=== PATIENT | female | born 1985 | race Caucasian/White ===

== ENCOUNTER 2016-05-26 17:57 | Emergency (ER) | payer OTHER ==
--- NOTE | 2016-05-26 19:21 | DIAGNOSTIC IMAGING REPORT ---
PROCEDURE: XR KNEE 4 VIEWS - RIGHT INDICATION: TRAUMA/INJURY, initial encounter TECHNIQUE: Four views. COMPARISON: None. FINDINGS: Osseous structures, soft tissues and joint spaces are normal. IMPRESSION: 1. Normal left knee.
--- NOTE | 2016-05-26 19:38 | ED NURSING NOTES ---
Clinical Report - Nurs[facility] [address] [place] [address] 05/26/2016 17:57 Patient: ROSARIO HERNANDEZ TRIAGE Acuity: LEVEL 3. Chief Complaint: INJURY TO LEFT KNEE. Alert. No acute distress. SEPSIS SCREEN: Sepsis Screen. Negative (no infection suspected/documented). --18:27 Tammie Rivero R.N. 18:23 05/26/16. BP: 127/91. HR: 110. RR: 16. O2 saturation: 100%. Temp: 98.8 F (oral). Pain level now: 11/12. --18:27 Tammie Rivero R.N. Weight: 113.3 kg stated. Height/Length: 69 inches Per Patient. BMI: 36.9. --18:26 Tammie Rivero R.N. Medications Naproxen Oral. --18:25 Tammie Rivero R.N. Cyclobenzaprine HCl Oral 10 mg, as needed. --18:25 Tammie Rivero R.N. Medication/allergy information source: the patient. --18:27 Tammie Rivero R.N. Allergies No Known Drug Allergy. --18:25 Tammie Rivero R.N. History Arrived by private vehicle. Historian: patient. Accompanied by spouse. This occurred just prior to arrival. ( Pt reports after several standing and squatting episodes while bathing her horse, she felt her left knee "grind and then pop."). 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 SOCIAL HX: Never smoker. No alcohol use or drug use. FALL RISK ASSESSMENT: Fall risk assessment completed. No fall risk identified. NUTRITIONAL RISK ASSESSMENT: The nutritional risk assessment revealed no deficiencies. FUNCTIONAL ASSESSMENT: Functional assessment: no impairments noted. LEARNING NEEDS ASSESSMENT: The learning needs assessment revealed no barriers. SKIN INTEGRITY ASSESSMENT: Skin integrity risk assessment completed. No skin integrity risk identified. --18:27 Tammie Rivero R.N. PROBLEMS: Knee Injury. --18:25 Tammie Rivero R.N. ADDITIONAL SURGERIES: . --18:26 Tammie Rivero R.N. Assessment GENERAL / NEURO / PSYCH: Alert. Oriented X 4. Appears in no acute distress. Priscilal Coma Scale: 15- eyes open spontaneously (4); best verbal response- oriented x 4 (5); best motor response- obeys commands (6). Patient appears calm and cooperative. RESPIRATORY: Respirations not labored. CVS: Capillary refill less than 2 seconds. GI / : Abdomen soft and nontender. SKIN: Mucous membranes are pink. Skin is warm and dry. --18:27 Tammie Rivero R.N. Interventions ID band on patient. To treatment room. --18: Tammie Rivero R.N. PHYSICAL ASSESSMENT To room via wheelchair. GENERAL / NEURO / PSYCH: Oriented X 4. Alert. Appears in no acute distress. EXTREMITIES: Capillary refill is less than 2 seconds in the extremities. Extremity pulses are within normal limits. She was unable to bear weight. Neuro-vascular status intact to the extremity. SKIN: Skin intact. Skin is warm and dry. --18:27 Tammie Rivero R.N. NURSING PROGRESS NOTES 18:05/26/16. Patient gowned. Two patient identifiers checked. Call light placed in reach. Side rails up x 1. Patient ready for evaluation- chart flagged. ED physician at the patient's bedside. --18:28 Tammie Rivero R.N. 19:05/26/2016 Dilaudid (HYDROmorphone HCl PF) IM 1 mg given. Given in the right anterior lateral thigh. Allergies verified, confirmed 5 rights and sedative warning given to the patient. --19: Tammie Rivero R.N. 19:05/26/2016 Phenergan (Promethazine HCl) IM 25 mg given. Given in the right anterior lateral thigh. Allergies verified, confirmed 5 rights and sedative warning given to the patient. --19: Tammie Rivero R.N. Immobilizer applied to right knee; distal pulses intact, sensation intact and motor function within normal limits. Patient fit with new crutches (medium). Crutch training performed by tech; the patient demonstrated proper use. --19:52 Dominic Oden, ER Municipal [employer] Trader. DISPOSITION / DISCHARGE Departure time: 1999May 26 2016. Condition at departure: improved and stable. No learning barriers present. Discharge instructions provided and reviewed with the patient. Reviewed medication(s) side effects, precautions and dosing information. Prescription(s) given to the patient. Patient verbalized understanding. Written instructions provided in Togolese. The patient was discharged by the physician. She was discharged home and accompanied by spouse. She left the Emergency Department in a wheelchair on crutches and via private vehicle. Spouse driving. --22:37 Tammie Rivero R.N. Locked/Released at 05/26/2016 22:38 by Tammie Rivero R.N.
--- NOTE | 2016-05-26 19:38 | ED NURSING NOTES ---
Clinical Report - Nurses [facility] [address] [place] [address] 05/26/2016 17:57 Patient: ROSARIO HERNANDEZ TRIAGE Acuity: LEVEL 3. Chief Complaint: INJURY TO LEFT KNEE. Alert. No acute distress. SEPSIS SCREEN: Sepsis Screen. Negative (no infection suspected/documented). --18:27 Tammie Rivero R.N. 18:23 05/26/16. BP: 127/91. HR: 110. RR: 16. O2 saturation: 100%. Temp: 98.8 F (oral). Pain level now: 11/12. --18:27 Tammie Rivero R.N. Weight: 113.3 kg stated. Height/Length: 69 inches Per Patient. BMI: 36.9. --18:26 Tammie Rivero R.N. Medications Naproxen Oral. --18:25 Tammie Rivero R.N. Cyclobenzaprine HCl Oral 10 mg, as needed. --18:25 Tammie Rivero R.N. Medication/allergy information source: the patient. --18:27 Tammie Rivero R.N. Allergies No Known Drug Allergy. --18:25 Tammie Rivero R.N. History Arrived by private vehicle. Historian: patient. Accompanied by spouse. This occurred just prior to arrival. ( Pt reports after several standing and squatting episodes while bathing her horse, she felt her left knee "grind and then pop."). 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 SOCIAL HX: Never smoker. No alcohol use or drug use. FALL RISK ASSESSMENT: Fall risk assessment completed. No fall risk identified. NUTRITIONAL RISK ASSESSMENT: The nutritional risk assessment revealed no deficiencies. FUNCTIONAL ASSESSMENT: Functional assessment: no impairments noted. LEARNING NEEDS ASSESSMENT: The learning needs assessment revealed no barriers. SKIN INTEGRITY ASSESSMENT: Skin integrity risk assessment completed. No skin integrity risk identified. --18:27 Tammie Rivero R.N. PROBLEMS: Knee Injury. --18:25 Tammie Rivero R.N. ADDITIONAL SURGERIES: . --18:26 Tammie Rivero R.N. Assessment GENERAL / NEURO / PSYCH: Alert. Oriented X 4. Appears in no acute distress. Priscilla Coma Scale: 15- eyes open spontaneously (4); best verbal response- oriented x 4 (5); best motor response- obeys commands (6). Patient appears calm and cooperative. RESPIRATORY: Respirations not labored. CVS: Capillary refill less than 2 seconds. GI / : Abdomen soft and nontender. SKIN: Mucous membranes are pink. Skin is warm and dry. --18:27 Tammie Rivero R.N. Interventions ID band on patient. To treatment room. --18: Tammie Rivero R.N. PHYSICAL ASSESSMENT To room via wheelchair. GENERAL / NEURO / PSYCH: Oriented X 4. Alert. Appears in no acute distress. EXTREMITIES: Capillary refill is less than 2 seconds in the extremities. Extremity pulses are within normal limits. She was unable to bear weight. Neuro-vascular status intact to the extremity. SKIN: Skin intact. Skin is warm and dry. --18:27 Tammie Rivero R.N. NURSING PROGRESS NOTES 18:05/26/16. Patient gowned. Two patient identifiers checked. Call light placed in reach. Side rails up x 1. Patient ready for evaluation- chart flagged. ED physician at the patient's bedside. --18:28 Tammie Rivero R.N. 19:05/26/2016 Dilaudid (HYDROmorphone HCl PF) IM 1 mg given. Given in the right anterior lateral thigh. Allergies verified, confirmed 5 rights and sedative warning given to the patient. --19: Tammie Rivero R.N. 19:05/26/2016 Phenergan (Promethazine HCl) IM 25 mg given. Given in the right anterior lateral thigh. Allergies verified, confirmed 5 rights and sedative warning given to the patient. --19: Tammie Rivero R.N. Immobilizer applied to right knee; distal pulses intact, sensation intact and motor function within normal limits. Patient fit with new crutches (medium). Crutch training performed by tech; the patient demonstrated proper use. --19:52 Dominic Oden, ER Junior Mechanical Engineer. DISPOSITION / DISCHARGE Departure time: 1999May 26 2016. Condition at departure: improved and stable. No learning barriers present. Discharge instructions provided and reviewed with the patient. Reviewed medication(s) side effects, precautions and dosing information. Prescription(s) given to the patient. Patient verbalized understanding. Written instructions provided in Jamaican. The patient was discharged by the physician. She was discharged home and accompanied by spouse. She left the Emergency Department in a wheelchair on crutches and via private vehicle. Spouse driving. --22:37 Tammie Rivero R.N. Locked/Released at 05/26/2016 22:38 by Tmamie Rivero R.N.
--- NOTE | 2016-05-26 19:38 | ED CLINICAL REPORT ---
Clinical Report - Physicians/Mid Levels [facility] [address] [place] [address] 05/26/2016 17:57 Patient: ROSARIO HERNANDEZ Time Seen: 18:24. Arrived- By private vehicle. Historian- patient. HISTORY OF PRESENT ILLNESS Chief Complaint: Injury to right knee. The injury happened today. Injury secondary to other mechansim (Pt reports after several standing and squatting episodes while bathing her horse, she felt her right knee "grind and then pop.). Occurred at home. Patient is experiencing moderate pain. Patient denies injury to the head or neck. No other injury. REVIEW OF SYSTEMS The patient complains of pain on weight bearing. No swelling, tingling, weakness, numbness or suspected foreign body. No skin laceration. PAST HISTORY See nurses notes. Left knee sprain (currently undergoing physical therapy). Surgeries: . SOCIAL HISTORY Never smoker. No alcohol use or drug use. ADDITIONAL NOTES The nursing notes have been reviewed. PHYSICAL EXAM Vital Signs: 05/26/2016 18:23 BP: 127/91. HR: 110. RR: 16. O2 saturation: 100%. Temp: 98.8 F. Pain level now: 7/10. Appearance: Alert. Oriented X3. Patient in mild distress. Head: Head atraumatic. Eyes: Eyes normal inspection. No scleral icterus or pale conjunctivae. Neck: Normal inspection. CVS: Normal heart rate and rhythm. Heart sounds normal. Pulses normal. Respiratory: No respiratory distress. Breath sounds normal. Chest nontender. Back: Normal inspection. Skin: Skin intact. Skin warm and dry. Normal skin color. Normal skin turgor. Extremities: Right knee: moderate tenderness located in the medial joint line and lateral joint line. Limited ROM secondary to pain. Neurovascular intact distally. No ligamentous laxity present. No erythema, swelling, laceration, abrasion or ecchymosis. No puncture wound, foreign body or deformity. Right ankle. Extremities otherwise negative. Gait: Gait not tested due to pain. Neuro, Vascular and Tendons: Vascular status intact. Sensation intact. Motor intact. Neuro: Oriented X 3. LABS, X-RAYS, AND EKG Rt Knee X-ray: No fracture. Normal alignment. No bony lesion, air in the soft tissue or foreign body. Soft tissues normal. Joint spaces normal. Views: AP, lateral and oblique. Technique: good. The X-rays were interpreted contemporaneously by me. PROGRESS AND PROCEDURES Course of Care: Dilaudid 1 mg with Phenergan 25 mg IM given. Patient is stable. Physical exam findings are improved. Symptoms better. No fracture or evident joint effusion. Able to manipulate the knee after IM dilaudid, but still painful - most likely has meniscal tear. She is currently in PT for her left knee and may benefit from this and / or will need an MRI for definitive diagnosis. After manipulation, pt felt the knee in extension was more comfortable and knee immobilizer placed. Patient/family counseled. Old ED records reviewed. Disposition: Discharged. Condition: stable and improved. CLINICAL IMPRESSION Tear of the right medial meniscus and tear of the right lateral meniscus. INSTRUCTIONS Use crutches as needed and until better. Wear knee immobilizer for three days (THE KNEE IMMOBILIZER IS FOR YOUR COMFORT, SO IF IT BECOMES UNCOMFORTABLE, YOU MAY REMOVE IT AND FIND A POSITION OF COMFORT). Wear elastic wrap (Terrence wrap) as directed. Do not work for three days. (You may try gentle range of motion as tolerated). Warnings: SEDATIVE MEDICATION: You were given sedative medication during your visit. Do not drive or operate dangerous machinery. CONTROLLED SUBSTANCE WARNINGS. GENERAL WARNINGS: Return or contact your physician immediately if your condition worsens or changes unexpectedly, if not improving as expected, or if other problems arise. Prescription Medications: Ibuprofen 600mg tablets: take 1 tablet orally every 8 hours as needed for pain. Dispense thirty (30). No refills. Percocet 5 mg/325 mg: take 1-2 tablets orally every 8 hours as needed for pain. Dispense ten (10). No refill. Substitution is permissible. OTC Medications: Acetaminophen (available over the counter): take according to label instructions. Follow-up: Follow up with your doctor in about three days. (Electronically signed by Sage Lance DO 05/26/2016 21:30)
--- NOTE | 2016-05-26 19:38 | ED ORDER SUMMARY ---
..... Patient: ROSARIO HERNANDEZ OrderSheet [facility] VisitID: [id number] [place] [address] 30y, F Registration Date/Time: 05/26/2016 ORDER SHEET Weight: 113.3 kg (stated) Allergies: No Known Drug Allergy GENERAL ORDERS: Knee 4V Right Urgent (18:33 05/26/2016 [facility]) (Ack 18:34 TBergley) (18:53 MWinterer R.N.) Terrence Wrap (18:46 05/26/2016 [facility]) (Ack 19:01 MWinterer R.N.) (19:45 MWinterer R.N.) Knee Immobilizer (19:28 05/26/2016 [facility]) (19:45 MWinterer R.N.) Crutches (19:29 05/26/2016 [facility]) (19:45 MWinterer R.N.) MEDICATION ORDERS: Dilaudid IM 1 mg (HIGH ALERT MEDICATION, NOW) (18:33 05/26/2016 [facility]) (Ack 18:53 MWinterer R.N.) (19:01 MWinterer R.N.) Phenergan IM 25 mg (HIGH ALERT MEDICATION, NOW) (18:33 05/26/2016 [facility]) (Ack 18:53 MWinterer R.N.) (19:01 MWinterer R.N.) IV FLUIDS: ORDER SHEET NOTES: [Electronically signed by Sage Lance DO (21:30 05/26/2016)] [Electronically signed by Tammie Rivero R.N. (22:38 05/26/2016)] [Electronically locked/signed by Tammie Rivero R.N. (22:38 05/26/2016)]
--- NOTE | 2016-05-26 19:38 | ED ORDER SUMMARY ---
..... Patient: ROSARIO HERNANDEZ OrderSheet [facility] VisitID: [id number] [place] [address] 30y, F Registration Date/Time: 05/26/2016 ORDER SHEET Weight: 113.3 kg (stated) Allergies: No Known Drug Allergy GENERAL ORDERS: Knee 4V Right Urgent (18:33 05/26/2016 [facility]) (Ack 18:34 TBergley) (18:53 MWinterer R.N.) Terrence Wrap (18:46 05/26/2016 [facility]) (Ack 19:01 MWinterer R.N.) (19:45 MWinterer R.N.) Knee Immobilizer (19:28 05/26/2016 [facility]) (19:45 MWinterer R.N.) Crutches (19:29 05/26/2016 [facility]) (19:45 MWinterer R.N.) MEDICATION ORDERS: Dilaudid IM 1 mg (HIGH ALERT MEDICATION, NOW) (18:33 05/26/2016 [facility]) (Ack 18:53 MWinterer R.N.) (19:01 MWinterer R.N.) Phenergan IM 25 mg (HIGH ALERT MEDICATION, NOW) (18:33 05/26/2016 [facility]) (Ack 18:53 MWinterer R.N.) (19:01 MWinterer R.N.) IV FLUIDS: ORDER SHEET NOTES: [Electronically signed by Sage Lance DO (21:30 05/26/2016)] [Electronically signed by Tammie Rivero R.N. (22:38 05/26/2016)] [Electronically locked/signed by Tammie Rivero R.N. (22:38 05/26/2016)]
--- NOTE | 2016-05-26 22:38 | ED DISCHARGE INSTRUCTIONS ---
Patient: ROSARIO HERNANDEZ General Instructions [facility] VisitID: [id number] [place] [address] 30y, F Registration Date/Time: 05/26/2016 Tear of the right medial meniscus and tear of the right lateral meniscus. INSTRUCTIONS Use crutches as needed and until better. Wear knee immobilizer for three days (THE KNEE IMMOBILIZER IS FOR YOUR COMFORT, SO IF IT BECOMES UNCOMFORTABLE, YOU MAY REMOVE IT AND FIND A POSITION OF COMFORT). Wear elastic wrap (Terrence wrap) as directed. Do not work for three days. (You may try gentle range of motion as tolerated). Warnings: SEDATIVE MEDICATION: You were given sedative medication during your visit. Do not drive or operate dangerous machinery. CONTROLLED SUBSTANCE WARNINGS. GENERAL WARNINGS: Return or contact your physician immediately if your condition worsens or changes unexpectedly, if not improving as expected, or if other problems arise. Prescription Medications: Ibuprofen 600mg tablets: take 1 tablet orally every 8 hours as needed for pain. Dispense thirty (30). No refills. Percocet 5 mg/325 mg: take 1-2 tablets orally every 8 hours as needed for pain. Dispense ten (10). No refill. Substitution is permissible. OTC Medications: Acetaminophen (available over the counter): take according to label instructions. Follow-up: Follow up with your doctor in about three days. ADDITIONAL INFORMATION Knee Pain, Possible Torn Meniscus Themeniscusis a tough cartilage pad that cushions the inside of the knee joint. It serves as a shock absorber and spreads the weight of your body evenly across the knee joint. This prevents excess wear and tear to the bones of that joint. The most common causes of meniscal tears are due to injury (especially related to sports) and degenerative disease (as occurs with aging). A meniscus tear commonly occurs during a twisting injury when the knee is bent. This causes pain, swelling, reduced movement of the knee and difficulty walking. There may be popping, clicking, joint locking or inability to completely straighten the knee. Ligaments of the knee may also be injured. Initial diagnosis of a torn meniscus is by physical exam and x-rays. In the case of an acute injury, the knee may be too painful to examine fully. A more accurate exam can be performed after the initial swelling goes down. An MRI (magnetic image scan) may be ordered to make a final diagnosis. Initial treatment of a suspected meniscal injury is with ice and rest and preventing movement of the knee. A splint or Velcro knee immobilizer may be applied to protect the joint. Depending on the severity of the injury, surgery may be required. A cartilage injury may take 4-12 weeks to heal depending on the severity. Home Care: Stay off the injured leg as much as possible until you can walk on it without pain. If you have a lot of pain with walking, crutches or a walker may be prescribed. (These can be rented or purchased at many pharmacies and surgical or orthopedic supply stores). Follow your doctor's advice regarding when to begin bearing weight on that leg. Keep your leg elevated to reduce pain and swelling. When sleeping, place a pillow under the injured leg. When sitting, support the injured leg so it is level with your waist. This is very important during the first 48 hours. Apply an ice pack (ice cubes in a plastic bag, wrapped in a towel) over the injured area for 20 minutes every 1-2 hours the first day. You can place the ice pack directly over the splint. If a Velcro knee immobilizer was applied, you can open this to apply the ice pack directly to the knee. Continue with ice packs 3-4 times a day for the next two days, then as needed for the relief of pain and swelling. You may use acetaminophen (Tylenol) or ibuprofen (Motrin, Advil) to control pain, unless another pain medicine was prescribed. [NOTE: If you have chronic liver or kidney disease or ever had a stomach ulcer, talk with your doctor before using these medicines.] If you were given a splint, keep it completely dry at all times. Bathe with your splint out of the water, protected with a large plastic bag, rubber-banded at the top end. If a fiberglass splint gets wet, you can dry it with a hair-dryer. If you have a Velcro knee immobilizer, you can remove this to bathe, unless told otherwise. Check with your doctor before returning to sports or full work duties. Follow Up with your doctor, or as advised, within 1-2 weeks for another exam. Further testing may be required to assess the extent of your injury. [NOTE: If X-rays were taken, they will be reviewed by a radiologist. You will be notified of any new findings that may affect your care.] Get Prompt Medical Attention if any of the following occur: Toes or foot becomes swollen, cold, blue, numb or tingly Pain or swelling increases over the knee or calf Warmth or redness appears over the knee or calf Shortness of breath or chest pain Fever over 100.4F (38.0C) Sprain, Knee A sprain is an injury to the ligaments or capsule that holds a joint together. There are no broken bones. Most sprains take three to six weeks to heal. If the ligament is completely torn (severe sprain), it can take months to recover from. Most knee sprains are treated with a splint, knee immobilizer or elastic wrap for support. Severe sprains may require surgery. Home care The following guidelines will help you care for your injury at home: Stay off the injured leg as much as possible until you can walk on it without pain. If you have a lot of pain with walking, crutches or a walker may be prescribed. (These can be rented or purchased at many pharmacies and surgical or orthopedic supply stores). Follow your doctor's advice regarding when to begin bearing weight on that leg. Keep your leg elevated to reduce pain and swelling. When sleeping, place a pillow under the injured leg. When sitting, support the injured leg so it is level with your waist. This is very important during the first 48 hours. Apply an ice pack (ice cubes in a plastic bag, wrapped in a towel) over the injured area for 20 minutes every 12 hours the first day. You can place the ice pack directly over the splint. If a Velcro knee immobilizer was applied, you can open this to apply the ice pack directly to the knee. Continue with ice packs 34 times a day for the next two days, then as needed for the relief of pain and swelling. You may use acetaminophen or ibuprofen to control pain, unless another pain medicine was prescribed. If you have chronic liver or kidney disease or ever had a stomach ulcer or GI bleeding, talk with your doctor before using these medicines. If you were given a splint, keep it completely dry at all times. Bathe with your splint out of the water, protected with a large plastic bag, rubber-banded at the top end. If a fiberglass splint gets wet, you can dry it with a hair-dryer. If you have a Velcro knee immobilizer, you can remove this to bathe, unless told otherwise. Follow-up care Follow up with your doctor as advised. Any X-rays you had today dont show any broken bones, breaks, or fractures. Sometimes fractures dont show up on the first X-ray. Bruises and sprains can sometimes hurt as much as a fracture. These injuries can take time to heal completely. If your symptoms dont improve or they get worse, talk with your doctor. You may need a repeat X-ray. When to seek medical care Get prompt medical attention if any of the following occur: The plaster cast or splint becomes wet or soft The fiberglass cast or splint remains wet for more than 24 hours Pain or swelling increases Toes become cold, blue, numb or tingly Crutch Walking Crutch Adjustment Make sure the crutches you use are adjusted to fit you. When you stand, there should be room to fit 2-3 fingers between the top of the crutch and your armpit. Your elbow should be slightly bent when holding the hand patient care secretary. Crutch Walking: Place the crutches forward 12" in front of and 6" to the side of your feet. Lean your weight forward as you push down on the handgrips. Your weight should be on your hands and yourstrong leg, not your armpits . Let your body swing through, landing on the strong leg. Advance the crutches forward again. The crutch and the injured leg should move together. Going Up Steps: ("Up with the good") With both crutches on the same step as your feet, push down on the handgrips. Balancing with very light pressure on the weak leg, let your hands support your weight as you raise your strong leg onto the next higher step. Transfer all your weight to your strong leg (still bent) as you move the crutches up to the next step alongside the strong leg. With your weight evenly balanced on the two crutches and your strong leg, straighten your strong knee as you raise the weak leg up to the next step. Going Down Steps: ("Down with the bad") With both crutches on the same step as your feet, push down on the handgrips. With your weight evenly balanced on the two crutches and your strong leg, bend your strong knee as you lower the weak leg down to the next step. Let your strong leg support you (still bent) as you move the crutches down alongside the weak leg. Transfer your weight to your hands, balancing with very light pressure on the weak leg as you lower your strong leg alongside your weak leg. Knee Immobilizer A KNEE IMMOBILIZER is used to provide support and limit movement of the knee. This will make you more comfortable as your injury heals. Home Use: 1) Unless told otherwise, the knee brace should be worn whenever you are out of bed. You may wear it in bed while asleep for the first few nights or until the pain starts to go away. Otherwise, remove the brace at night to avoid muscle stiffness from lack of joint movement. 2) You can open the velcro brace to dress, bathe and apply ice packs as directed. Get Prompt Medical Attention if any of the following occur: -- Worsening pain in the knee -- Weakness or numbness or tingling in the foot -- Increased swelling, redness or warmth of the knee joint Terrence Wrap An "Terrence Bandage" refers to any elastic bandage wrap (2-6" wide). This is used to apply support and compression to an arm or leg. It will help prevent or reduce swelling also. When applying the bandage, it should not be stretched too tightly. A tight Terrence Wrap will reduce circulation and cause tingling or numbness in the hand or foot. It may increase the pain under the bandage. If you get these symptoms, remove the wrap and rest the limb. Symptoms should go away within 1-2 hours. Once symptoms go away, reapply the bandage with less stretch. If symptoms do not go away after 1-2 hours with the bandage off, call your doctor or return to this facility promptly. Ibuprofen Oral tablet What is this medicine? IBUPROFEN (eye BYOO proe fen) is a non-steroidal anti-inflammatory drug (NSAID). It is used for dental pain, fever, headaches or migraines, osteoarthritis, rheumatoid arthritis, or painful monthly periods. It can also relieve minor aches and pains caused by a cold, flu, or sore throat. How should I use this medicine? Take this medicine by mouth with a glass of water. Follow the directions on the prescription label. Take this medicine with food if your stomach gets upset. Try to not lie down for at least 10 minutes after you take the medicine. Take your medicine at regular intervals. Do not take your medicine more often than directed. A special MedGuide will be given to you by the pharmacist with each prescription and refill. Be sure to read this information carefully each time. Talk to your college or university business manager regarding the use of this medicine in children. Special care may be needed. What side effects may I notice from receiving this medicine? Side effects that you should report to your doctor or health lpn care manager as soon as possible: allergic reactions like skin rash, itching or hives, swelling of the face, lips, or tongue black or bloody stools, blood in the urine or in vomit breathing problems changes in vision chest pain general ill feeling or flu-like symptoms nausea or vomiting redness, blistering, peeling or loosening of the skin, including inside the mouth slurred speech or weakness on one side of the body stomach pain unexplained weight gain or swelling unusually weak or tired yellowing of eyes or skin Side effects that usually do not require medical attention (report to your doctor or health lpn care manager if they continue or are bothersome): constipation or diarrhea dizziness gas or heartburn stomach upset What may interact with this medicine? Do not take this medicine with any of the following medications: cidofovir ketorolac methotrexate pemetrexed This medicine may also interact with the following medications: alcohol aspirin diuretics lithium other drugs for inflammation like prednisone warfarin What if I miss a dose? If you miss a dose, take it as soon as you can. If it is almost time for your next dose, take only that dose. Do not take double or extra doses. Where should I keep my medicine? Keep out of the reach of children. Store at room temperature between 15 and 30 degrees C (59 and 86 degrees F). Keep container tightly closed. Throw away any unused medicine after the expiration date. What should I tell my health care provider before I take this medicine? They need to know if you have any of these conditions: asthma cigarette smoker drink more than 3 alcohol containing drinks a day heart disease or circulation problems such as heart failure or leg edema (fluid retention) high blood pressure kidney disease liver disease stomach bleeding or ulcers an unusual or allergic reaction to ibuprofen, aspirin, other NSAIDS, other medicines, foods, dyes, or preservatives or trying to get breast-feeding What should I watch for while using this medicine? Tell your doctor or healthcare professional if your symptoms do not start to get better or if they get worse. This medicine does not prevent heart attack or stroke. In fact, this medicine may increase the chance of a heart attack or stroke. The chance may increase with longer use of this medicine and in people who have heart disease. If you take aspirin to prevent heart attack or stroke, talk with your doctor or health lpn care manager. Do not take other medicines that contain aspirin, ibuprofen, or naproxen with this medicine. Side effects such as stomach upset, nausea, or ulcers may be more likely to occur. Many medicines available without a prescription should not be taken with this medicine. This medicine can cause ulcers and bleeding in the stomach and intestines at any time during treatment. Ulcers and bleeding can happen without warning symptoms and can cause . To reduce your risk, do not smoke cigarettes or drink alcohol while you are taking this medicine. You may get drowsy or dizzy. Do not drive, use machinery, or do anything that needs mental alertness until you know how this medicine affects you. Do not stand or sit up quickly, especially if you are an older patient. This reduces the risk of dizzy or fainting spells. This medicine can cause you to bleed more easily. Try to avoid damage to your teeth and gums when you brush or floss your teeth. Oxycodone Hydrochloride, Acetaminophen Oral tablet What is this medicine? ACETAMINOPHEN; OXYCODONE (a set a STEPHANIE leah fen; ox i KOE done) is a pain reliever. It is used to treat mild to moderate pain. How should I use this medicine? Take this medicine by mouth with a full glass of water. Follow the directions on the prescription label. Take your medicine at regular intervals. Do not take your medicine more often than directed. Talk to your college or university business manager regarding the use of this medicine in children. Special care may be needed. Patients over 65 years old may have a stronger reaction and need a smaller dose. What side effects may I notice from receiving this medicine? Side effects that you should report to your doctor or health lpn care manager as soon as possible: allergic reactions like skin rash, itching or hives, swelling of the face, lips, or tongue breathing difficulties, wheezing confusion light headedness or fainting spells severe stomach pain yellowing of the skin or the whites of the eyes Side effects that usually do not require medical attention (report to your doctor or health lpn care manager if they continue or are bothersome): dizziness drowsiness nausea vomiting What may interact with this medicine? alcohol antihistamines barbiturates like amobarbital, butalbital, butabarbital, methohexital, pentobarbital, phenobarbital, thiopental, and secobarbital benztropine drugs for bladder problems like solifenacin, trospium, oxybutynin, tolterodine, hyoscyamine, and methscopolamine drugs for breathing problems like ipratropium and tiotropium drugs for certain stomach or intestine problems like propantheline, homatropine methylbromide, glycopyrrolate, atropine, belladonna, and dicyclomine general anesthetics like etomidate, ketamine, nitrous oxide, propofol, desflurane, enflurane, halothane, isoflurane, and sevoflurane medicines for depression, anxiety, or psychotic disturbances medicines for sleep muscle relaxants naltrexone narcotic medicines (opiates) for pain phenothiazines like perphenazine, thioridazine, chlorpromazine, mesoridazine, fluphenazine, prochlorperazine, promazine, and trifluoperazine scopolamine tramadol trihexyphenidyl What if I miss a dose? If you miss a dose, take it as soon as you can. If it is almost time for your next dose, take only that dose. Do not take double or extra doses. Where should I keep my medicine? Keep out of the reach of children. This medicine can be abused. Keep your medicine in a safe place to protect it from theft. Do not share this medicine with anyone. Selling or giving away this medicine is dangerous and against the law. Store at room temperature between 20 and 25 degrees C (68 and 77 degrees F). Keep container tightly closed. Protect from light. This medicine may cause accidental overdose and if it is taken by other adults, children, or pets. Flush any unused medicine down the toilet to reduce the chance of harm. Do not use the medicine after the expiration date. What should I tell my health care provider before I take this medicine? They need to know if you have any of these conditions: brain tumor Crohn's disease, inflammatory bowel disease, or ulcerative colitis drink more than 3 alcohol containing drinks per day drug abuse or addiction head injury heart or circulation problems kidney disease or problems going to the bathroom liver disease lung disease, asthma, or breathing problems an unusual or allergic reaction to acetaminophen, oxycodone, other opioid analgesics, other medicines, foods, dyes, or preservatives or trying to get breast-feeding What should I watch for while using this medicine? Tell your doctor or health lpn care manager if your pain does not go away, if it gets worse, or if you have new or a different type of pain. You may develop tolerance to the medicine. Tolerance means that you will need a higher dose of the medication for pain relief. Tolerance is normal and is expected if you take this medicine for a long time. Do not suddenly stop taking your medicine because you may develop a severe reaction. Your body becomes used to the medicine. This does NOT mean you are addicted. Addiction is a behavior related to getting and using a drug for a non-medical reason. If you have pain, you have a medical reason to take pain medicine. Your doctor will tell you how much medicine to take. If your doctor wants you to stop the medicine, the dose will be slowly lowered over time to avoid any side effects. You may get drowsy or dizzy. Do not drive, use machinery, or do anything that needs mental alertness until you know how this medicine affects you. Do not stand or sit up quickly, especially if you are an older patient. This reduces the risk of dizzy or fainting spells. Alcohol may interfere with the effect of this medicine. Avoid alcoholic drinks. There are different types of narcotic medicines (opiates) for pain. If you take more than one type at the same time, you may have more side effects. Give your health care provider a list of all medicines you use. Your doctor will tell you how much medicine to take. Do not take more medicine than directed. Call emergency for help if you have problems breathing. The medicine will cause constipation. Try to have a bowel movement at least every 2 to 3 days. If you do not have a bowel movement for 3 days, call your doctor or health lpn care manager. Do not take Tylenol (acetaminophen) or medicines that have acetaminophen with this medicine. Too much acetaminophen can be very dangerous. Many nonprescription medicines contain acetaminophen. Always read the labels carefully to avoid taking more acetaminophen. Acetaminophen Oral tablet What is this medicine? ACETAMINOPHEN (a set a STEPHANIE leah fen) is a pain reliever. It is used to treat mild pain and fever. How should I use this medicine? Take this medicine by mouth with a glass of water. Follow the directions on the package or prescription label. Take your medicine at regular intervals. Do not take your medicine more often than directed. Talk to your college or university business manager regarding the use of this medicine in children. While this drug may be prescribed for children as young as 6 years of age for selected conditions, precautions do apply. What side effects may I notice from receiving this medicine? Side effects that you should report to your doctor or health lpn care manager as soon as possible: allergic reactions like skin rash, itching or hives, swelling of the face, lips, or tongue breathing problems fever or sore throat redness, blistering, peeling or loosening of the skin, including inside the mouth trouble passing urine or change in the amount of urine unusual bleeding or bruising unusually weak or tired yellowing of the eyes or skin Side effects that usually do not require medical attention (report to your doctor or health lpn care manager if they continue or are bothersome): headache nausea, stomach upset What may interact with this medicine? alcohol imatinib isoniazid other medicines with acetaminophen What if I miss a dose? If you miss a dose, take it as soon as you can. If it is almost time for your next dose, take only that dose. Do not take double or extra doses. Where should I keep my medicine? Keep out of reach of children. Store at room temperature between 20 and 25 degrees C (68 and 77 degrees F). Protect from moisture and heat. Throw away any unused medicine after the expiration date. What should I tell my health care provider before I take this medicine? They need to know if you have any of these conditions: if you frequently drink alcohol containing drinks liver disease an unusual or allergic reaction to acetaminophen, other medicines, foods, dyes or preservatives or trying to get breast-feeding What should I watch for while using this medicine? Tell your doctor or health lpn care manager if the pain lasts more than 10 days (5 days for children), if it gets worse, or if there is a new or different kind of pain. Also, check with your doctor if a fever lasts for more than 3 days. Do not take other medicines that contain acetaminophen with this medicine. Always read labels carefully. If you have questions, ask your doctor or pharmacist. If you take too much acetaminophen get medical help right away. Too much acetaminophen can be very dangerous and cause liver damage. Even if you do not have symptoms, it is important to get help right away. You have been given the following additional information: Knee Pain, Meniscus Injury (Possible) Knee Sprain Crutch Walking Knee Immobilizer Terrence Wrap Ibuprofen Oral tablet Oxycodone Hydrochloride, Acetaminophen Oral tablet Acetaminophen Oral tablet Do not work for three days. (Electronically signed by Sage Lance DO 05/26/2016 21:30)
--- NOTE | 2016-05-26 22:38 | ED MED RECONCILIATION SUMMARY ---
Patient: ROSARIO HERNANDEZ Medication Reconciliation Report [facility] VisitID: [id number] [address] [place] [address] 30y, F Registration Date/Time: 05/26/2016 Weight: 113.3 kg Height/Length: 69 in. BMI: 36.9 ALLERGIES: No Known Drug Allergy The patient's Home Medications are listed below: THE FOLLOWING MEDICATIONS NEED TO BE RECONCILED: Cyclobenzaprine HCl Oral 10 mg Naproxen Oral The source(s) of the original Home Medication information: patient The following Medications were given to the patient in the Emergency Department: Dilaudid [IM] IM 1 mg, administered: 05/26/2016 7:01:00 PM Phenergan [IM] IM 25 mg, administered: 05/26/2016 7:01:00 PM The following Medications were prescribed to the patient: Acetaminophen (available over the counter): take according to label instructions. -- Sage Lance DO Ibuprofen 600mg tablets: take 1 tablet orally every 8 hours as needed for pain. Dispense thirty (30). No refills. -- Sage Lance DO Percocet 5 mg/325 mg: take 1-2 tablets orally every 8 hours as needed for pain. Dispense ten (10). No refill. Substitution is permissible. -- Sage Lance DO
--- NOTE | 2016-05-26 22:38 | ED MAR SUMMARY ---
..... Medication Administration Record [facility] [address] [place] [place] [address] Patient: ROSARIO HERNANDEZ Visit ID: [id number] 30y, F Weight: 113.3 kg Height/Length: 69 in BMI: 36.9 ALLERGIES: No Known Drug Allergy Given 19:05/26/2016 Tammie Rivero, R.N. Medication Administered: DILAUDID [IM] (HYDROMORPHONE HCL PF), Dose: 1 mg IM. Medication Ordered: Dilaudid IM 1 mg (HIGH ALERT MEDICATION, NOW). Given 19:05/26/2016 Tammie Rivero, R.N. Medication Administered: PHENERGAN [IM] (PROMETHAZINE HCL), Dose: 25 mg IM. Medication Ordered: Phenergan IM 25 mg (HIGH ALERT MEDICATION, NOW).
--- NOTE | 2016-05-26 22:38 | ED MED RECONCILIATION SUMMARY ---
Patient: ROSARIO HERNANDEZ Medication Reconciliation Report [facility] VisitID: [id number] [address] [place] [address] 30y, F Registration Date/Time: 05/26/2016 Weight: 113.3 kg Height/Length: 69 in. BMI: 36.9 ALLERGIES: No Known Drug Allergy The patient's Home Medications are listed below: THE FOLLOWING MEDICATIONS NEED TO BE RECONCILED: Cyclobenzaprine HCl Oral 10 mg Naproxen Oral The source(s) of the original Home Medication information: patient The following Medications were given to the patient in the Emergency Department: Dilaudid [IM] IM 1 mg, administered: 05/26/2016 7:01:00 PM Phenergan [IM] IM 25 mg, administered: 05/26/2016 7:01:00 PM The following Medications were prescribed to the patient: Acetaminophen (available over the counter): take according to label instructions. -- Sage Lance DO Ibuprofen 600mg tablets: take 1 tablet orally every 8 hours as needed for pain. Dispense thirty (30). No refills. -- Saeg Lance DO Percocet 5 mg/325 mg: take 1-2 tablets orally every 8 hours as needed for pain. Dispense ten (10). No refill. Substitution is permissible. -- Sage Lance DO
--- NOTE | 2016-05-26 22:38 | ED MAR SUMMARY ---
..... Medication Administration Record [facility] [address] [place] [address] Patient: ROSARIO HERNANDEZ Visit ID: [id number] 30y, F Weight: 113.3 kg Height/Length: 69 in BMI: 36.9 ALLERGIES: No Known Drug Allergy Given 19:05/26/2016 Tammie Rivero, R.N. Medication Administered: DILAUDID [IM] (HYDROMORPHONE HCL PF), Dose: 1 mg IM. Medication Ordered: Dilaudid IM 1 mg (HIGH ALERT MEDICATION, NOW). Given 19:05/26/2016 Tammie Rivero, R.N. Medication Administered: PHENERGAN [IM] (PROMETHAZINE HCL), Dose: 25 mg IM. Medication Ordered: Phenergan IM 25 mg (HIGH ALERT MEDICATION, NOW).
== END 2016-05-26 20:00 | disposition home or self-care (01) ==
LOC: ED SRH 17:57
DX: S83.241A Other tear of medial meniscus, current injury, right knee, initial encounter (principal); S83.281A Other tear of lateral meniscus, current injury, right knee, initial encounter; X50.1XXA Overexertion from prolonged static or awkward postures, initial encounter; Y93.K9 Activity, other involving animal care; Y99.8 Other external cause status; Y92.009 Unspecified place in unspecified non-institutional (private) residence as the place of occurrence of the external cause

== ENCOUNTER 2016-10-17 14:59 | Outpatient (CLI) | payer OTHER ==
--- NOTE | 2016-10-17 15:43 | DIAGNOSTIC IMAGING REPORT ---
PROCEDURE: XR CHEST 2 VIEW INDICATION: PRE OP for knee surgery TECHNIQUE: Two views. COMPARISON: None. FINDINGS: The cardiomediastinal contour and central vasculature are within normal limits. The lungs are clear without focal consolidation, pleural effusion, or pneumothorax. The visualized osseous structures are intact. IMPRESSION: 1. Normal chest.
== END 2016-10-17 23:00 ==
LOC: RT SRH 14:59
DX: Z01.818 Encounter for other preprocedural examination (principal); Z01.812 Encounter for preprocedural laboratory examination; Z01.810 Encounter for preprocedural cardiovascular examination
CPT/HCPCS: 90004; 90074; 90100; 95059

== ENCOUNTER 2016-10-30 09:01 | Day surgery (SDC) | payer OTHER ==
--- NOTE | 2016-10-17 15:32 | HISTORY AND PHYSICAL ---
ADMITTED: 10/30/2016 CHIEF COMPLAINT: 1. Right knee pain HISTORY OF PRESENT ILLNESS: She had an injury to her right knee. She injured is back in May. She has had an MRI scan which did not show any internal derangement of the knee, but she has had repeated episodes of locking and of pain and of giving way of the knee. She is scheduled for knee arthroscopy surgery to look for a loose body or chondral defect. Her history is significant in that she has had episodes of patellar dislocation in the past, but she does not think this is the same thing and does not seem like the patella was dislocating when it locks, and so she thinks it is something different. She has had explained to her what the procedure will be. We will plan to do a knee arthroscopy, debridement procedure as needed, possible lateral release. I explained the risk of infection, of failure, continued pain and giving way of the knee. I cannot guarantee that will be successful, but I believe it is in her best interest to have it done, and she agrees and accepts. We will plan to do the surgery then on 10/31/2015, barring unforeseen complication or problem. 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 She also recently has had some upper respiratory infections, but they are largely clear at this point in time. She has had some dysfunctional uterine bleeding and says that she actually has missed her menstrual period this month. She does not believe she is , but she has not had a menstrual period as she normally does in the first week or 2 of the month. MEDICATIONS: 1. She currently is on Sudafed 30 mg, she takes 2 tablets every 4-6 hours as needed for congestion. 2. Powersite 5/325. She takes it only rarely for pain control. ALLERGIES: 1. NO KNOWN ALLERGIES. SOCIAL HISTORY: She is a nonsmoker. FAMILY HISTORY: Negative for any type of familial illness or bleeding or anesthesia problems. REVIEW OF SYSTEMS: PHYSICAL EXAMINATION: HEENT: Shows the head to be normocephalic and atraumatic. Her eyes are clear. Her extraocular muscles are intact. Her hearing is grossly normal. NECK: Without jugular venous distention. HEART: Regular rate and rhythm without murmur. LUNGS: Clear to auscultation. ABDOMEN: Obese. EXTREMITIES: The exam, I will refer you to my previous clinic notes, but she has no open wounds. There is no erythema, no undue warmth. No drainage and minimal edema. She does have some discomfort anteriorly in the knee, but the patella is not unstable at all, and I could not get her to sublux even just more than a quarter of the width of the patella. She has good pull-through of the extensor mechanism. I do not feel any crepitation with range of motion, and there is no malalignment that is present either. IMPRESSION: 1. Internal derangement of the right knee PLAN: The plan will be for knee arthroscopy and debridement as necessary, and we will do that on 10/30/2016, barring any unforeseen complication or problem.
[~2016-10-30] VITALS: Ht 175.3 cm; Wt 116.8 kg
[~2016-10-30 09:01] MED LIST: VICODIN EQUIVAL1 TAB PO
--- NOTE | 2016-10-30 12:52 | Postoperative Progress Note ---
Postop Progress Note Preoperate Diagnosis: Internal derangement right knee Postoperative Diagnosis: Same with medial parapatellar plica Surgeon: Roger Baker MD Anesthesia: General ETT Findings: Medial parapatellar plica Procedure: Right knee scope and resection of parapatellar plica Complications? No Condition: Stable EBL: 3cc Blood Administered: 0 Specimen(s) removed? No Grafts or Implants? No . (See nursing notes for details of grafts/implants)
[2016-10-30] MEDS ORDERED: NORCO1 TA1 PO ×2 (12:54)
--- NOTE | 2016-10-30 12:56 | Provider's Discharge Care Plan ---
Problem, Goal, Plan Problem List 1. Plica syndrome, right knee
--- NOTE | 2016-10-30 12:56 | Provider's Discharge Care Plan ---
Problem, Goal, Plan Problem List 1. Plica syndrome, right knee
[2016-10-30 15:32] VITALS: BP 132/77
[2016-10-31] MEDS ORDERED: oxycodone PO ×2 (23:15→23:28)
[2016-10-31] MEDS ORDERED: BACLOFEN10 MG PO ×2 (23:18→23:28)
== END 2016-10-30 15:08 | disposition home or self-care (01) ==
LOC: SCU SRH 09:01 → OR SRH 09:01
PROVIDERS: Orthopaedic Surgery
PROC: 0SBC4ZZ Excision of Right Knee Joint, Percutaneous Endoscopic Approach (ICD-10-PCS; principal; 2016-10-30 11:00)
DX: M67.51 Plica syndrome, right knee (principal); S83.281A Other tear of lateral meniscus, current injury, right knee, initial encounter; X58.XXXA Exposure to other specified factors, initial encounter
CPT/HCPCS: 29229; 29240; 50002; 60001; 70002; 80118; 80144; 80212; 80575; 82591; 83420; 83774; 84044; 93070

== ENCOUNTER 2016-10-31 21:49 | Day surgery (SDC) | payer OTHER ==
[~2016-10-31] VITALS: Ht 175.3 cm; Wt 114.8 kg
[~2016-10-31 21:49] MED LIST changes: +NORCO1 TA1 PO
[2016-10-31 22:02] VITALS: BP 145/84
--- NOTE | 2016-10-31 22:58 | Progress Note ---
Subjective General Beginning 20 hours after an arthroscopy of the knee performed for multiple episodes of painful locking with a negative left knee MRI the patient had a dramatic increase in pain and spasm in the thigh and lower leg and today began getting intermittent tingling in the leg and foot. The operative note was reviewed today. The knee had normal articular cartilage and no loose bodies and no torn menisci. There was a plica present and it was shaved. Examination of the leg shows no discoloration of the foot, leg or thigh. There is a good dorsalis pedis pulse. The toes flex and extend actively, without causing calf pain but causing medial knee pain. There is no calf tenderness. The compartments are soft. The knee has only a small joint effusion (not a large tense effusion). Knee motion is 25-60 degrees. She says that she feels terrible pressure pain in the medial knee and gets cramps in the quadriceps and hamstrings. There is sensation in the toes and foot but testing sensation in the foot causes pain in the knee. The quadriceps and hamstrings are not palpably tense. I have treated her with dilaudid 2mg IM and baclofen 10mg. By examination there is no serious complication in the knee. Reflex sympathetic dystrophy does not present as intermittent locking, but maybe this is some kind of dystrophic pain. I am discharging her on oxycodone and gabapentin. I did not want to add baclofen until we see her response to the first two medications. She will follow up in the clinic with Dr. Sher, her surgeon.
--- NOTE | 2016-10-31 23:11 | NUR ---
PT TO ROOM [address]C [address] GARCIA. TO ROOM 206 AROUND 2200 WITH . ARRIVED VIA WHEELCHAIR FROM ADMITTING. A&OX4. VSS. C/O 10/10 PAIN, UNABLE TO SIT STILL, FACE FLUSHED, TEARY EYED, SOB. STATES SHE HAD A SCOPE OF HER RIGHT KNEE YESTERDAY AND TODAY HER PAIN HAS BEEN OUT OF CONTROL WITH PAIN MEDICATIONS SHE WAS PRESCRIBED AND HAS A HARD TIME BENDING HER KNEE. ATTEMPTED TO MAKE PT COMFORTABLE IN BED. AMBULATED TO BED WITH SBA. APPLIED ICE PACKS. DR. GARCIA IN TO ASSESS KNEE. NEW ORDERS FOR BACLOFEN AND IM DILAUDID, GIVEN. BOTH EFFECTIVE FOR PAIN. PT AFTER WAS ABLE TO BEND KNEE AND APPEARS COMFORTABLE STATING PAIN AT A 8/10 AND MORE TOLERABLE THAN BEFORE. ONLY REQUESTS ARE FOR WATER. AT BEDSIDE. NO IV ACCESS. PLAN IS FOR PT TO DISCHARGE HOME TONIGHT. WCTM.
[2016-10-31] MEDS ORDERED: oxycodone PO ×2 (23:15→23:28)
[2016-10-31] MEDS ORDERED: BACLOFEN10 MG PO ×2 (23:18→23:28)
--- NOTE | 2016-10-31 23:33 | Provider's Discharge Care Plan ---
Problem, Goal, Plan Problem List 1. Plica syndrome, right knee
--- NOTE | 2016-10-31 23:33 | Provider's Discharge Care Plan ---
Problem, Goal, Plan Problem List 1. Plica syndrome, right knee
== END 2016-10-31 23:51 | disposition home or self-care (01) ==
LOC: SDC SRH 21:49 → ACUTE2 SRH 21:52 → SDC SRH 23:51
DX: G89.18 Other acute postprocedural pain (principal)

== ENCOUNTER 2016-11-01 11:19 | Outpatient (CLI) | payer OTHER ==
[~2016-11-01 11:19] MED LIST changes: +BACLOFEN10 MG PO; +oxycodone PO
--- NOTE | 2016-11-01 13:17 | DIAGNOSTIC IMAGING REPORT ---
PROCEDURE: US VENOUS - RIGHT EXT INDICATION: Right leg pain and swelling. 2 days post arthroscopic knee surgery. TECHNIQUE: Color Doppler duplex imaging of the deep and superficial venous system without and with compression. COMPARISON: None. FINDINGS: Deep and superficial venous system of the right lower extremity is within normal limits. There is no evidence of deep vein thrombosis or superficial thrombophlebitis. IMPRESSION: 1. Negative venous ultrasound of the right lower extremity. 2. Findings discussed with Dr. Baker who recommends low dose aspirin therapy. 3. The findings of this study and the recommendations of Dr. Baker were conveyed to the patient.
== END 2016-11-01 23:00 | disposition home or self-care (01) ==
LOC: US SRH 11:19
DX: M79.604 Pain in right leg (principal); M79.89 Other specified soft tissue disorders; Z98.890 Other specified postprocedural states